=== PATIENT | female | born 1945 | race Two or more races ===

== ENCOUNTER 2024-06-16 13:58 | Outpatient (AMB) | payer MEDICARE, MEDICAID, SELFPAY ==
[2024-06-16 14:12] VITALS: BP 113/74; PULSE 80; RESP 18; TEMP 35.6; O2SAT 92; BMI 35.2
--- NOTE | 2024-06-16 14:12 | ORTHONT_ITS ---
Vital signs 06/16/24 14:12 Height 1.45 m Height Method Stated Weight 74.106 kg Weight Measurement Method Standing Scale BMI 35.2 BP 113/74 Blood Pressure Source Automatic Cuff Blood Pressure Location Right Upper Arm Position Sitting Respiration 18 Pulse 80 Pulse Source Monitor Temp 96.1 F L Temp Source Temporal Artery Scan Pulse Oximetry (%) 92 L Oxygen Delivery Method Room Air Med/Allergies Allergies & Medications Allergies No Known Drug Allergies Allergy (Verified 06/16/24 14:12) Medication Reconciliation amlodipine 5 mg tablet 5 mg PO QDAY 04/23/23 [History Confirmed 06/16/24] duloxetine 20 mg capsule,delayed release 20 mg PO BID 04/23/23 [History Confirmed 06/16/24] lisinopril 40 mg tablet 40 mg PO QDAY 04/23/23 [History Confirmed 06/16/24] pantoprazole 40 mg granules delayed-release for susp in packet 40 mg PO QDAY 04/23/23 [History Confirmed 06/16/24] aspirin 81 mg tablet,delayed release 81 mg PO BID #60 tabs 05/05/23 [Rx Confirmed 06/16/24] doxycycline hyclate 100 mg tablet 100 mg PO BID #14 tabs 05/05/23 [Rx Confirmed 06/16/24] gabapentin 300 mg capsule 300 mg PO .qhs #30 caps 05/05/23 [Rx Confirmed 06/16/24] meloxicam 7.5 mg tablet 7.5 mg PO QDAY #30 tabs 05/05/23 [Rx Confirmed 06/16/24] sennosides 8.6 mg-docusate sodium 50 mg tablet (Senna-S) 1 tab-cap PO QDAY #30 tabs 05/05/23 [Rx Confirmed 06/16/24] Exam Exam Patient is in no acute distress and is cooperative with the examination today. Patient has a normal mood and affect. Breathing is nonlabored. In no respiratory distress. Bilateral extremities were evaluated and demonstrates sensation intact to light touch. Palpable pedal pulses are present. No significant edema is present Right knee incisions clean dry intact. Range of motion 0 to 105 degrees Her x-rays look good. There is no evidence of any loosening. Assessment and Plan Problem List (1) Status post total right knee replacement: Status: Acute Plan: Patient is a 78-year-old female status post total knee replacement. She had a fall 2 weeks ago but is still able to walk. We will get annual knee x-rays as it been over a year. She appears to be doing well Advanced Care Planning Discussion Advance care planning discussed with:: patient Office Procedures GNS Level of Care Nursing/Assessment Patient Status: Established Patient Nursing Assessment/Reassesment: Medication Reconciliation, Update PMH in EMR and Vital Signs Coordination of Care: Complex Care and Chronic Disease 1-5, Education Complex Pt/Fam, Consent,records obtained, informed consent, Results/Orders obtained and Staff clarify orders Established Patient Charge Established Patient Point Assignment: 95 Established Patient Point Charge: EP Level 3 (80-115) MA Intake Visit Data Collection New Patient or Established: Established Patient (seen at [facility] within 3 years) Reason for Visit:: RIGHT KNEE PAIN Seen by Clinical Staff ONLY (RN/MA): No Verbal consent obtained for Telemed visit?: No Adult Basic Education Manager Required: Yes PCP or OBGYN visit in last 3 months: Yes Hx Now: No Do You Feel Safe at Home: Yes Authorities Contacted: N/A Questionairres Past Medical History Past Medical History Have you ever been diagnosed with any of the following: Neurological Problems Seizures: No Cardiology Problems Congestive Heart Failure: No Edema: Yes (right leg) Hypertension: Yes Respiratory Problems Chronic Obstructive Pulmonary Disease (COPD): No Tuberculosis: Yes (was treated 20 yrs ago) Smoking: No Smoking Exposure: No Stomache/Intestinal Problems Hepatitis: No Hemorrhoids: Yes Genital/Urinary Problems Renal Disease: No Reproductive Problems Previous Pregnancies: Yes Musculoskeletal Problems Arthritis: Yes Endocrine Problems Diabetes Mellitus Type 1: No Diabetes Mellitus Type 2: No Other Problems Hospitalization: Yes (bleeding from hemorrhoids) Shingles: No Blood Transfusions: No Blood Transfusion Reaction: No Anesthesia Reactions: No Chicken Pox: Yes Cancer: Yes Subjective Visit Visit for: follow up visit and knee Immunization / Flu Flu Vaccine in the Last 12 Months: No Flu Vaccine Exclusion Criteria: No Exclusion Criteria History of Present Illness Chief complaint: RIGHT KNEE Date of injury / onset of symptoms: 2 WKS CORDELL Mendes is a pleasant 78-year-old female status post right total knee replacement. Is been over a year and 2 months. She had a fall 2 weeks ago but reports there is minimal pain. We will need new x-rays Personal History Occupation: RETIRED Red flag PMH: BMI and none BMI Counceling provided: Yes Pain Pain level (0-10): 5 Pain duration: COMES AND GOES Pain location: inside (medial) Pain quality: aching Pain timing: increases with activity and stairs Associated signs & symptoms: none Ambulatory data Ambulatory device: none Treatments Improvement with previous injections: No Improvement with PT: No Improvement with NSAIDS: n/a Review of Systems Review of Systems: All systems negative unless otherwise noted in HPI.
== END 2024-06-16 14:32 | disposition home or self-care (01) ==
LOC: HODSRG 13:58
PROVIDERS: PCP Family Medicine; Referring Provider Family Medicine; Supervising Provider Orthopaedic Surgery Adult Reconstructive Orthopaedic Surgery; Visit Provider Orthopaedic Surgery Adult Reconstructive Orthopaedic Surgery
DX: Z96.651 Presence of right artificial knee joint (principal); T14.90XA Injury, unspecified, initial encounter; W19.XXXA Unspecified fall, initial encounter; I10 Essential (primary) hypertension
CPT/HCPCS: 99213; G0463

== ENCOUNTER 2024-06-30 11:39 | Outpatient (AMB) | payer MEDICARE, MEDICAID, SELFPAY ==
--- NOTE | 2024-06-30 11:34 | ORTHONT_ITS ---
Med/Allergies Allergies & Medications Allergies No Known Drug Allergies Allergy (Verified 06/30/24 11:34) Medication Reconciliation amlodipine 5 mg tablet 5 mg PO QDAY 04/23/23 [History Confirmed 06/30/24] duloxetine 20 mg capsule,delayed release 20 mg PO BID 04/23/23 [History Confirmed 06/30/24] lisinopril 40 mg tablet 40 mg PO QDAY 04/23/23 [History Confirmed 06/30/24] pantoprazole 40 mg granules delayed-release for susp in packet 40 mg PO QDAY 04/23/23 [History Confirmed 06/30/24] aspirin 81 mg tablet,delayed release 81 mg PO BID #60 tabs 05/05/23 [Rx Confirmed 06/30/24] doxycycline hyclate 100 mg tablet 100 mg PO BID #14 tabs 05/05/23 [Rx Confirmed 06/30/24] gabapentin 300 mg capsule 300 mg PO .qhs #30 caps 05/05/23 [Rx Confirmed 06/30/24] meloxicam 7.5 mg tablet 7.5 mg PO QDAY #30 tabs 05/05/23 [Rx Confirmed 06/30/24] sennosides 8.6 mg-docusate sodium 50 mg tablet (Senna-S) 1 tab-cap PO QDAY #30 tabs 05/05/23 [Rx Confirmed 06/30/24] Subjective Visit Visit for: follow up visit and x-rays (RESULTS) Immunization / Flu Flu Vaccine in the Last 12 Months: No Flu Vaccine Exclusion Criteria: No Exclusion Criteria History of Present Illness Chief complaint: 4 MONTH FOLLOW UP Patient is doing well 11 months out from her right total knee replacement. She is very happy with her progress and her pain relief. She had a fall 2 weeks ago and is here for follow-up of her x-rays. Personal History Red flag PMH: none Pain Pain level (0-10): 0 Pain duration: ON AND OFF Pain location: inside (medial) Pain quality: aching Associated signs & symptoms: none Ambulatory data Ambulatory device: none Treatments Improvement with previous injections: No Improvement with PT: No Improvement with NSAIDS: no Review of Systems Review of Systems: All systems negative unless otherwise noted in HPI. Assessment and Plan Problem List (1) Status post total right knee replacement: Status: Acute Plan: Patient is a 78-year-old female status post total knee replacement. She had a fall 2 weeks ago but is still able to walk. We received new x-rays which demonstrated a total knee replacement in good alignment and position. There is no evidence of fracture. Advanced Care Planning Discussion Advance care planning discussed with:: patient Office Procedures GNS Level of Care Nursing/Assessment Patient Status: Established Patient Nursing Assessment/Reassesment: Medication Reconciliation, Update PMH in EMR and Vital Signs Coordination of Care: Complex Care and Chronic Disease 1-5, Education Complex Pt/Fam, Consent,records obtained, informed consent, Results/Orders obtained and Staff clarify orders Special Needs: Language special needs Established Patient Charge Established Patient Point Assignment: 95 Telehealth Telemed Phone/Video with patient at home & ,[place],TRAINING DEVELOPMENT DIRECTOR: Yes
== END 2024-06-30 11:43 | disposition home or self-care (01) ==
LOC: HODSRG 11:39
PROVIDERS: PCP Family Medicine; Referring Provider Family Medicine; Supervising Provider Orthopaedic Surgery Adult Reconstructive Orthopaedic Surgery; Visit Provider Orthopaedic Surgery Adult Reconstructive Orthopaedic Surgery
DX: Z47.1 Aftercare following joint replacement surgery (principal); Z96.651 Presence of right artificial knee joint
CPT/HCPCS: 99212; G0463

== ENCOUNTER 2025-04-12 08:22 | Outpatient (AMB) | payer MEDICARE, MEDICAID, SELFPAY ==
--- NOTE | 2025-04-12 08:37 | PD.ORTHCLVIS ---
Vital signs 04/12/25 08:38 Height 1.45 m Height Method Measured Weight 73.595 kg Weight Measurement Method Standing Scale BMI 34.9 BP 166/73 H Blood Pressure Source Automatic Cuff Blood Pressure Location Left Upper Arm Position Sitting Respiration 18 Pulse 79 Pulse Source Monitor Temp 97.5 F Temp Source Temporal Artery Scan Pulse Oximetry (%) 94 L Oxygen Delivery Method Room Air Med/Allergies Allergies & Medications Allergies No Known Drug Allergies Allergy (Verified 04/12/25 08:38) Medication Reconciliation amlodipine 5 mg tablet 5 mg PO QDAY 04/23/23 [History Confirmed 04/12/25] duloxetine 20 mg capsule,delayed release 20 mg PO BID 04/23/23 [History Confirmed 04/12/25] lisinopril 40 mg tablet 40 mg PO QDAY 04/23/23 [History Confirmed 04/12/25] pantoprazole 40 mg granules delayed-release for susp in packet 40 mg PO QDAY 04/23/23 [History Confirmed 04/12/25] aspirin 81 mg tablet,delayed release 81 mg PO BID #60 tabs 05/05/23 [Rx Confirmed 04/12/25] doxycycline hyclate 100 mg tablet 100 mg PO BID #14 tabs 05/05/23 [Rx Confirmed 04/12/25] gabapentin 300 mg capsule 300 mg PO .qhs #30 caps 05/05/23 [Rx Confirmed 04/12/25] meloxicam 7.5 mg tablet 7.5 mg PO QDAY #30 tabs 05/05/23 [Rx Confirmed 04/12/25] sennosides 8.6 mg-docusate sodium 50 mg tablet (Senna-S) 1 tab-cap PO QDAY #30 tabs 05/05/23 [Rx Confirmed 04/12/25] Exam Exam Patient is in no acute distress and is cooperative with the examination today. Breathing is nonlabored. Patient has a normal mood and affect. Bilateral extremities were evaluated and demonstrates sensation intact to light touch. Palpable pedal pulses are present. No significant edema is present. Bilateral hips were examined. The patient has no pain with log roll of the hips. Internal rotation to 30 degrees and external rotation to 30 degrees is painless. Negative FADIR. Right knee incisions clean dry intact. Range of motion 0 to 110 degrees Left knee was examined today. The left knee is in varus alignment. Range of motion from 0-115 degrees. Knee is stable to varus and valgus as well as AP translation with <5mm. Patient has a negative Mc[place]rays. There is no pain with patellofemoral compression and no crepitus noted. The knee is tender to palpation medially. X-rays from 04/22/2025 demonstrate complete joint space narrowing medially with varus deformity Assessment and Plan Problem List (1) Arthritis of left knee: Status: Acute Plan: Patient is a 79-year-old female with left knee pain and left knee arthritis. We will obtain new x-rays today. She will likely get an injection today Recommend knee cortisone injection as patient would like to proceed with conservative treatment at this time. The risks and benefits of the procedure were reviewed with the patient and patient gave verbal consent to continue with the procedure. Procedure: performed by Dr. Barajas Using sterile technique the left knee was thoroughly prepped with alcohol, and approximately 1 cc of Depo-Medrol 80mg/mL and 4 cc of 0.2% ropivacaine was injected without resistance into the medial tibial femoral joint space. The patient tolerated the procedure. Advanced Care Planning Discussion Advance care planning discussed with:: patient Office Procedures GNS Level of Care Nursing/Assessment Patient Status: Established Patient Nursing Assessment/Reassesment: Medication Reconciliation, Update PMH in EMR and Vital Signs Coordination of Care: Complex Care and Chronic Disease 1-5, Education Complex Pt/Fam, Consent,records obtained, informed consent, Results/Orders obtained and Staff clarify orders Special Needs: Language special needs Established Patient Charge Established Patient Point Assignment: 95 Established Patient Point Charge: EP Level 3 (80-115) Surgical Proc/IM SQ injection Minor Surgical Procedure: Yes (KNEE INJECTION ) Medication Given Medication Given Medication Given: Yes Documented Dose Given: 1 Route: Infiitration Medication Given Medication Given Medication Given: Yes Documented Dose Given: 4 Route: Infiitration Office Meds methylprednisolone acetate 80 mg/mL suspension for injection Performing Provider: Edgardo Barajas MD Performing Location: [facility] Administered by: Edgardo Barajas MD on 04/12/25 11:45 Dose Route Admin Location Dispensed Lot Number Expiration Date Package [facility] Customer Complaint Clerk 80 mg intra-articular KNEE 1 mL [id number] 01/04/27 [address]-9 [id number] [employer] ropivacaine (PF) 2 mg/mL (0.2 %) injection solution Performing Provider: Edgardo Barajas MD Performing Location: [facility] Administered by: Edgardo Barajas MD on 04/12/25 11:45 Dose Route Admin Location Dispensed Lot Number Expiration Date Package NDC NDC Customer Complaint Clerk 20 mL Infiltration KNEE 20 mL [id number] 07/07/27 78346-168-52 [id number] [facility] Intake Visit Data Collection New Patient or Established: Established Patient (seen at [facility] within 3 years) Reason for Visit:: LEFT KNEE PAIN Seen by Clinical Staff ONLY (RN/MA): No Verbal consent obtained for Telemed visit?: No Candy Wrapping Machine Operator Required: Yes PCP or OBGYN visit in last 3 months: Yes Hx Now: No Do You Feel Safe at Home: Yes Authorities Contacted: N/A Questionairres Past Medical History Past Medical History Have you ever been diagnosed with any of the following: Neurological Problems Seizures: No Cardiology Problems Congestive Heart Failure: No Edema: Yes (right leg) Hypertension: Yes Respiratory Problems Chronic Obstructive Pulmonary Disease (COPD): No Tuberculosis: Yes (was treated 20 yrs ago) Smoking: No Smoking Exposure: No Stomache/Intestinal Problems Hepatitis: No Hemorrhoids: Yes Genital/Urinary Problems Renal Disease: No Reproductive Problems Previous Pregnancies: Yes Musculoskeletal Problems Arthritis: Yes Endocrine Problems Diabetes Mellitus Type 1: No Diabetes Mellitus Type 2: No Other Problems Hospitalization: Yes (bleeding from hemorrhoids) Shingles: No Blood Transfusions: No Blood Transfusion Reaction: No Anesthesia Reactions: No Chicken Pox: Yes Cancer: Yes Subjective Visit Visit for: follow up visit and knee Immunization / Flu Flu Vaccine in the Last 12 Months: No Flu Vaccine Exclusion Criteria: No Exclusion Criteria History of Present Illness Chief complaint: LEFT KNEE PAIN Date of injury / onset of symptoms: 2 WKS FELL 29-year-old female with a history of a right total knee replacement is doing well. She reports the left knee pain has been ongoing for approximately 1 year. She tried anti-inflammatories. She has not had any injections or any recent x-rays. She has tried anti-inflammatories in the past Personal History Occupation: RETIRED Red flag PMH: BMI and none BMI Counceling provided: Yes Pain Pain level (0-10): 9 Pain duration: COMES AND GOES Pain location: inside (medial) Pain quality: aching Pain timing: increases with activity and stairs Associated signs & symptoms: none Ambulatory data Ambulatory device: none Treatments Improvement with previous injections: No Improvement with PT: No Improvement with NSAIDS: n/a Review of Systems Review of Systems: All systems negative unless otherwise noted in HPI.
[2025-04-12 08:38] VITALS: BP 166/73; PULSE 79; RESP 18; TEMP 36.4; O2SAT 94; BMI 34.9
--- NOTE | 2025-04-12 08:46 | XR_ITS ---
Examination: Knee, left, 4 views Technique: Knee AP, lateral, oblique and tunnel, 4 views 3 views Date and time of exam: 04/12/2025 at 8:59 a.m. INDICATION: Left knee pain for 2 months COMPARISON: Right knee radiographs 05/05/2023 FINDINGS: The frontal view includes both knees, the right knee again exhibiting a knee arthroplasty with no evidence for fracture or loosening on the provided single view of the right knee. The left knee shows tricompartmental osteoarthrosis with marginal osteophyte formation. There is moderate to high-grade joint space narrowing at the medial femorotibial compartment and less pronounced joint space narrowing at the remaining compartments. Mild to moderate suprapatellar joint effusion is identified. There may be edema in the infrapatellar fat pad. No fracture or subluxation identified. IMPRESSION: Tricompartmental osteoarthrosis of the left knee with dominant joint space narrowing at the medial femorotibial compartment. Joint effusion noted. No acute fracture.
== END 2025-04-12 09:22 | disposition home or self-care (01) ==
LOC: HODSRG 08:22
PROVIDERS: PCP Family Medicine; Referring Provider Family Medicine; Supervising Provider Orthopaedic Surgery Adult Reconstructive Orthopaedic Surgery; Visit Provider Orthopaedic Surgery Adult Reconstructive Orthopaedic Surgery
DX: M25.562 Pain in left knee (principal); M17.12 Unilateral primary osteoarthritis, left knee; Z96.651 Presence of right artificial knee joint; M25.462 Effusion, left knee; I10 Essential (primary) hypertension
CPT/HCPCS: 20610; 73564; 99213; J1010; J2795; G0463